=== PATIENT | male | born 1955 | race Caucasian/White ===

== ENCOUNTER 2021-12-19 09:14 | Outpatient (CLI) | payer OTHER, SELFPAY ==
--- NOTE | 2021-12-19 09:29 | EST_ITS ---
Patient Info Name: Osmar Delgado Age: 66 years : 1955 Gender: Male Ht: 72 in Wt: 230 lbs BSA: 2.33 m2 Exam Date: 12/19/2021 9:56 AM Exam Location: [facility] Stress Patient Status: Outpatient Admit Date: 12/19/2021 Staff Ordering Physician: Jeniffer Hooks Attending Provider: Jeniffer Hooks Exercise Technologist: Isadora Dumont RDCS Exercise Physician: Torres Meyer DO Exam Type: CA stress test treadmill Study Info Indications R07.9 - Chest pain, unspecified An exercise stress test was performed. Summary 1. 1. Negative Victor Manuel exercise stress test for ischemic ST changes by ECG criteria. 2. 2. Reduced functional capacity, achieving 7 METs of workload. 3. 3. Appropriate HR response to exercise. 4. 4. Appropriate HR recovery at 1 minute post exercise. 5. 5. No imaging with stress testing. 6. 6. Patient informed of the above results. Protocol: Victor Manuel Stress ECG Details Stage: REST Duration (min): 3 min : 23 sec Speed (mph): 0.0 Grade (%): 0 HR (bpm): 87 SBP (mmHg): 138 DBP (mmHg): 85 METS: --- Stage: REST Duration (min): 11 min : 10 sec Speed (mph): 0.0 Grade (%): 0 HR (bpm): 93 SBP (mmHg): 138 DBP (mmHg): 85 METS: --- Stage: STAGE 1 Duration (min): 1 min : 0 sec Speed (mph): 1.7 Grade (%): 10 HR (bpm): 103 SBP (mmHg): 138 DBP (mmHg): 85 METS: --- Stage: STAGE 1 Duration (min): 2 min : 0 sec Speed (mph): 1.7 Grade (%): 10 HR (bpm): 118 SBP (mmHg): 138 DBP (mmHg): 85 METS: --- Stage: STAGE 1 Duration (min): 3 min : 0 sec Speed (mph): 1.7 Grade (%): 10 HR (bpm): 121 SBP (mmHg): 189 DBP (mmHg): 68 METS: --- Stage: STAGE 2 Duration (min): 1 min : 0 sec Speed (mph): 2.5 Grade (%): 12 HR (bpm): 132 SBP (mmHg): 189 DBP (mmHg): 68 METS: --- Stage: STAGE 2 Duration (min): 2 min : 0 sec Speed (mph): 2.5 Grade (%): 12 HR (bpm): 139 SBP (mmHg): 145 DBP (mmHg): 67 METS: --- Stage: STAGE 2 Duration (min): 3 min : 0 sec Speed (mph): 2.5 Grade (%): 12 HR (bpm): 145 SBP (mmHg): 161 DBP (mmHg): 60 METS: --- Stage: RECOVERY Duration (min): 0 min : 59 sec Speed (mph): 0.0 Grade (%): 0 HR (bpm): 128 SBP (mmHg): 183 DBP (mmHg): 58 METS: --- Stage: RECOVERY Duration (min): 1 min : 59 sec Speed (mph): 0.0 Grade (%): 0 HR (bpm): 105 SBP (mmHg): 183 DBP (mmHg): 58 METS: --- Stage: RECOVERY Duration (min): 2 min : 59 sec Speed (mph): 0.0 Grade (%): 0 HR (bpm): 98 SBP (mmHg): 192 DBP (mmHg): 70 METS: --- Stage: RECOVERY Duration (min): 3 min : 59 sec Speed (mph): 0.0 Grade (%): 0 HR (bpm): 94 SBP (mmHg): 192 DBP (mmHg): 70 METS: --- Stage: RECOVERY Duration (min): 4 min : 59 sec Speed (mph):
== END 2021-12-19 09:15 | disposition home or self-care (01) ==
LOC: ANHCARD 09:16
PROVIDERS: PCP Internal Medicine; Visit Provider Nurse Practitioner
DX: R07.89 Other chest pain (principal)
CPT/HCPCS: 93017

== ENCOUNTER 2023-08-01 01:23 | Day surgery (SDC) | payer OTHER, SELFPAY ==
[2023-07-19 14:13] VITALS: BMI 29.2
[2023-08-01 06:38] VITALS: BP 132/67; PULSE 76; RESP 16; TEMP 36.4; O2SAT 98; BMI 28.1
[2023-08-01] MEDS: LACTATED RINGERS 1,000 ML 150 ML IV CONT (06:54)
--- NOTE | 2023-08-01 07:28 | PM.HPGS ---
History of Present Illness History of Present Illness Consent: Risks, benefits, and alternatives have been discussed and questions answered. Patient agrees to proceed with procedure. Chief complaint: neoplasm screening Narrative: Osmar Delgado is a 67 year old male Presents for screening colonoscopy. Patient's current weight appetite and bowel movements are normal. Patient denies abdominal pain. He has had no bleeding. Family history noncontributory. Previous colonoscopy was unremarkable. Patient presents today for screening exam. Review of Systems Review of Systems: Review of systems noncontributory. [facility] Past Medical History Medical History COVID-19 Enlarged prostate without lower urinary tract symptoms (luts) High cholesterol Mixed hyperlipidemia Vitamin D deficiency, unspecified Surgical History Surgical History H/O arthroscopic knee surgery Family History Family History Mother Hypertension Sibling Alcohol abuse Social History Social History Smoking status: Never smoker Second hand tobacco smoke exposure: No Alcohol intake: never Alcohol use details: 2 times a week Substance use: never Substance use type: does not use Lack of Transportation: No Lack of Food: Never True Current Housing: I Have Housing Concerned About Future Housing: No Difficulty Paying Gas/Electric Bills: No Difficulty Paying for Meds: No Currently Unemployed: No Education: Decline to Answer Difficulty w/ Childcare or Family Care: No Living arrangements: with family Spiritual care concerns: No Meds Home Medications and Allergies Home Medications Medication Instructions Recorded Confirmed Type omega-3 fatty acids 1,000 mg 1,000 mg PO BID 06/22/21 07/19/23 History capsule (Fish Oil Concentrate) ergocalciferol (vitamin D2) 1,250 1,250 mcg PO WEEKLY 90 days #12 03/18/23 07/19/23 Rx mcg (50,000 unit) capsule caps atorvastatin 40 mg tablet 40 mg PO DAILY 90 days #90 tabs 03/19/23 07/19/23 Rx tamsulosin 0.4 mg capsule (Flomax) 0.4 mg PO QHS #90 caps 03/19/23 07/19/23 Rx ketoconazole 2 % topical cream 1 applic topical BID apply to 06/19/23 07/19/23 Rx scalp #60 grams finasteride 5 mg tablet (Proscar) 5 mg PO DAILY #90 tabs 06/20/23 07/19/23 Rx Allergies Allergy/AdvReac Type Severity Reaction Status Date / Time No Known Allergies Allergy Verified 07/19/23 14:12 Vital Signs Vital Signs - 24 hr 08/01/23 06:38 Temperature 97.5 F L Pulse Rate 76 Respiratory Rate 16 Blood Pressure 132/67 Pulse Oximetry 98 Oxygen Delivery Room Air Exam Narrative: Physical exam reveals patient to be alert. Vital signs stable. HEENT exam is unremarkable. Patient is anicteric. Lungs are clear to auscultation and percussion. Heart is without murmur or extra sounds. Abdomen bowel sounds are present soft nontender with no organomegaly. Digital external rectal exam is normal. Assessment and Plan Assessment and plan (1) Encounter for screening colonoscopy: Code(s): Z12.11 - Encounter for screening for malignant neoplasm of colon Status: Acute Assessment and Plan: Patient presents today for screening colonoscopy. He appears to be at average risk for colon polyps. Further recommendations may be given after endoscopy.
--- NOTE | 2023-08-01 07:53 | WPDANESEPPF ---
Anes - Initial Pre Proc Eval Procedure: Operation Date: 08/01/23 08:00 Proposed Procedures p Screening Colonoscopy - Lamont Boswell MD Date/Time: 08/01/23 07:53 Surgeon: Lamont Boswell MD Pre Op Diagnosis: neoplasm screening Patient Data Age: 67 Gender: M Height: 1.83 m Weight: 94.2 kg Last Vital Signs Temp 97.5 F L 08/01/23 06:38 Pulse 76 08/01/23 06:38 Resp 16 08/01/23 06:38 BP 132/67 08/01/23 06:38 Pulse Ox 98 08/01/23 06:38 O2 Del Method Room Air 08/01/23 06:38 Allergies Allergy/AdvReac Type Severity Reaction Status Date / Time No Known Allergies Allergy Verified 07/19/23 14:12 Home Medications Medication Instructions Recorded Confirmed Type omega-3 fatty acids 1,000 mg 1,000 mg PO BID 06/22/21 07/19/23 History capsule (Fish Oil Concentrate) ergocalciferol (vitamin D2) 1,250 1,250 mcg PO WEEKLY 90 days #12 03/18/23 07/19/23 Rx mcg (50,000 unit) capsule caps atorvastatin 40 mg tablet 40 mg PO DAILY 90 days #90 tabs 03/19/23 07/19/23 Rx tamsulosin 0.4 mg capsule (Flomax) 0.4 mg PO QHS #90 caps 03/19/23 07/19/23 Rx ketoconazole 2 % topical cream 1 applic topical BID apply to 06/19/23 07/19/23 Rx scalp #60 grams finasteride 5 mg tablet (Proscar) 5 mg PO DAILY #90 tabs 06/20/23 07/19/23 Rx Patient hx anesthesia problems: none Family hx anesthesia problems: none Results Review: All pre-operative results and documents have been reviewed as part of the pre-operative evaluation. [facility] Past Medical History Medical History COVID-19 Enlarged prostate without lower urinary tract symptoms (luts) High cholesterol Mixed hyperlipidemia Vitamin D deficiency, unspecified Surgical History Surgical History H/O arthroscopic knee surgery Family History Family History Mother Hypertension Sibling Alcohol abuse Social History Social History Smoking status: Never smoker Second hand tobacco smoke exposure: No Alcohol intake: never Alcohol use details: 2 times a week Substance use: never Substance use type: does not use Lack of Transportation: No Lack of Food: Never True Current Housing: I Have Housing Concerned About Future Housing: No Difficulty Paying Gas/Electric Bills: No Difficulty Paying for Meds: No Currently Unemployed: No Education: Decline to Answer Difficulty w/ Childcare or Family Care: No Living arrangements: with family Spiritual care concerns: No Anes - Eval Final PreProcedure Day of Procedure 08/01/23 07:53 Patient weight: normal Heart: regular rate and rhythm Lungs: clear to auscultation Airway: Mallampati scale class II Neurological: alert and oriented Last oral intake: >/= 8 hours ASA classification: II Emergent: no Anesthetic plan: proceed Anesthesia type and monitoring: general GIVS and standard monitoring Results Review: All pre-operative results and documents have been reviewed as part of the pre-operative evaluation. Informed Consent: The patient's anesthetic plan and its attendant risks and benefits were discussed with the patient/family/POA. Questions were solicited and answers provided to the satisfaction of the patient/family/POA.
[2023-08-01] MEDS: SIMETHICONE ORAL SUSPENSION 20 MG/0.3 ML 30 ML BOTTLE 0.6 ML IRRIGATION (08:12)
[2023-08-01 08:21] VITALS: BP 103/66; PULSE 83; RESP 20; O2SAT 97
[2023-08-01 08:31] VITALS: BP 112/70; PULSE 78; RESP 22; O2SAT 92
[2023-08-01 08:41] VITALS: BP 127/76; PULSE 76; RESP 19; O2SAT 100
== END 2023-08-01 08:45 | disposition home or self-care (01) ==
PROVIDERS: PCP Family Medicine; Visit Provider Internal Medicine Gastroenterology
PROC: 0DJD8ZZ Inspection of Lower Intestinal Tract, Via Natural or Artificial Opening Endoscopic (ICD-10-PCS; CPT 45378; principal; 2023-08-01 08:00)
DX: Z12.11 Encounter for screening for malignant neoplasm of colon (principal); K57.30 Diverticulosis of large intestine without perforation or abscess without bleeding; N40.0 Benign prostatic hyperplasia without lower urinary tract symptoms; E78.00 Pure hypercholesterolemia, unspecified; E55.9 Vitamin D deficiency, unspecified; Z79.899 Other long term (current) drug therapy
CPT/HCPCS: G0121; J2704; J7120

== ENCOUNTER 2025-06-03 11:40 | Outpatient (CLI) | payer OTHER, SELFPAY ==
--- NOTE | ~2025-06-03 | XR_ITS ---
EXAMINATION: XR wrist LT min 3V, 06/03/2025 11:45 CDT HISTORY: M25.539 - Pain in unspecified wrist COMPARISON: No comparisons available. Findings: No acute fracture or malalignment. Moderate degenerative changes of the first metacarpal carpal joint Soft tissues unremarkable. Impression: No acute fracture or malalignment. Reviewed, dictated and finalized at location A. Impression: No acute fracture or malalignment.
== END 2025-06-03 11:41 | disposition home or self-care (01) ==
LOC: MICIMG 11:41
PROVIDERS: PCP Family Medicine; Visit Provider Family Medicine
DX: M25.532 Pain in left wrist (principal)
CPT/HCPCS: 73110

== ENCOUNTER 2025-07-02 07:47 | Emergency (ER) | payer OTHER, SELFPAY ==
[2025-07-02] VITALS (7 sets, daily range): BP systolic 102–132; BP diastolic 66–78; PULSE 93–180; RESP 14–22; TEMP 36.4–36.6; O2SAT 99–100
--- NOTE | ~2025-07-02 | XR_ITS ---
Examination: XR chest 1V portable Clinical History: tachycardia Comparison: None Technique: Portable AP Findings: Heart size normal. Lungs clear. Small calcified granuloma left midlung. Right hilar calcifications. No acute bony abnormality. IMPRESSION: 1. No acute cardiopulmonary findings given portable technique. Reviewed, dictated and finalized at location R.
--- NOTE | ~2025-07-02 | CT_ITS ---
EXAMINATION: CTA chest PE protocol DATE: 07/02/2025 09:36 INDICATION: Tachycardia. Elevated d-dimer. TECHNIQUE: Computed tomography angiography (CTA) of the chest was performed with 100 mL Omnipaque-350 intravenous contrast timed to evaluate the pulmonary arteries. Coronal maximum intensity projection 3D-reconstructions were created by the technologist. Automated exposure control and iterative reconstruction technique were employed. The dose-length product was 840.36 mGy-cm. COMPARISON: None. FINDINGS: There is mild atelectasis bilaterally. Calcified right lung nodules and calcified right hilar lymph nodes are consistent with old granulomatous disease. No pleural effusion. The heart size is normal. There are coronary artery calcifications. No pericardial effusion. There is no pulmonary embolus. Calcifications in the spleen are consistent with old granulomatous disease. There is mild thoracic spondylosis. IMPRESSION: 1. No pulmonary embolus. Reviewed, dictated and finalized at location E. IMPRESSION: 1. No pulmonary embolus.
[2025-07-02] MEDS: METOPROLOL TARTRATE INJ 5 MG/5 ML VIAL IV PUSH (08:14)
--- NOTE | 2025-07-02 08:15 | ED_ITS ---
HPI - General Adult General Chief complaint: Dizziness Stated complaint: dizziness, b/l hand numbness, neck soreness Time Seen by Provider: 07/02/25 07:58 History of Present Illness HPI narrative: 69-year-old male presents to the emergency department for evaluation for onset of dizziness this morning. Patient does have vertigo but states this is not vertiginous. Patient states he woke up this morning tract was neck and the falling back into the bed twice. Patient denies any pain or injury. Patient also does report tingling in his hands bilaterally and worsened chronic neck pain. Upon arrival emergency department patient was found to be and suspected SVT with heart rate to the 180s. Her some Valsalva was prior to evaluation patient did convert back to sinus tachycardia. Related Data Home Medications ?Medication ?Instructions ?Recorded ?Confirmed ?Last Taken ?Type omega-3 fatty acids 1,000 mg 1,000 mg PO BID 06/22/21 12/08/24 Unknown History capsule (Fish Oil Concentrate) Allergies Allergy/AdvReac Type Severity Reaction Status Date / Time No Known Allergies Allergy Verified 07/02/25 08:10 Review of Systems 2 Review of Systems: All systems reviewed & are unremarkable except as noted in HPI and below PMFSH Past Medical History Medical History COVID-19 High cholesterol Enlarged prostate without lower urinary tract symptoms (luts) Mixed hyperlipidemia Vitamin D deficiency, unspecified Surgical History Surgical History H/O arthroscopic knee surgery Family History Family History Mother Hypertension Sibling Alcohol abuse Social History Social History Smoking status: Never smoker Second hand tobacco smoke exposure: No Alcohol intake: never Alcohol use details: 2 times a week Substance use: never Substance use type: does not use Lack of Transportation: No Lack of Food: Never True Current Housing: I Have Housing Concerned About Future Housing: No Difficulty Paying Gas/Electric Bills: No Difficulty Paying for Meds: No Currently Unemployed: No Education: Decline to Answer Difficulty w/ Childcare or Family Care: No Living arrangements: with family Spiritual care concerns: No Exam 2 Narrative: APPEARANCE: Well appearing, no pain, no distress, well-nourished. HEAD: normocephalic, atraumatic. EYES: PERRLA/EOMI, conjunctivae clear. NOSE: Normal no drainage EARS:TMS clear with good light reflex. THROAT: Pharynx clear, no exudate. NECK: Supple. No adenopathy, no masses. RESPIRATORY: Airway patent, respirations nonlabored. Clear to auscultation bilaterally, no rales, rhonchi, wheezing. CARDIOVASCULAR: Regular rate and rhythm without murmurs rubs or gallops. ABDOMINAL: Soft, nontender, nondistended, normal bowel sounds MUSCULOSKELETAL: Moves all extremities. Strength/ROM intact, No edema, No calf tenderness. NEURO: Alert. Cranial nerves II through XII intact. Grossly intact SKIN: Warm, dry. Normal Color Course Vital Signs Vital signs: Vital Signs Temperature 97.8 F 07/02/25 08:02 Pulse Rate 180 H 07/02/25 08:02 Respiratory Rate 22 H 07/02/25 08:02 Pulse Oximetry 100 07/02/25 08:02 Temperature 97.5 F L 07/02/25 11:11 Pulse Rate 93 07/02/25 11:11 Respiratory Rate 17 07/02/25 11:11 Blood Pressure 132/78 07/02/25 11:11 Pulse Oximetry 99 07/02/25 11:11 Medical Decision Making [facility] Narrative Medical decision making narrative: 69-year-old male presents emergency department for evaluation for dizziness. Patient was an SVT upon arrival but did convert back to sinus tachycardia heart rate of the 140s. Patient was treated with a single dose of Lopressor and a L of lactated Ringer's and patient's heart rate became normal sinus rhythm. Patient was able to ambulate at his baseline with no complaint of dizziness. Patient denied having any associated chest pain during any of this episode. Patient is afebrile but does have a leukocytosis of 10.4 hemoglobin of 14.0. INR 1.0. Patient did an elevated D-dimer of 1.10, patient did have a CTA that was ordered and showed no evidence of pulmonary embolism. Thyroid is the normal limits and patient was negative for influenza RSV and for COVID. Holter monitor was ordered and placed prior to discharge emergency department. Patient was encouraged close follow-up with primary care physician. All questions were addressed patient was well-appearing at time of discharge. Differential Diagnosis Differential Diagnosis: COVID, RSV, influenza, atrial fibrillation, SVT, sinus tachycardia, dehydration having UTI Vital Signs Vital Signs: Vital Signs Temperature 97.8 F 07/02/25 08:02 Pulse Rate 180 H 07/02/25 08:02 Respiratory Rate 22 H 07/02/25 08:02 Pulse Oximetry 100 07/02/25 08:02 Temperature 97.5 F L 07/02/25 11:11 Pulse Rate 93 07/02/25 11:11 Respiratory Rate 17 07/02/25 11:11 Blood Pressure 132/78 07/02/25 11:11 Pulse Oximetry 99 07/02/25 11:11 Lab Data Lab results reviewed: Yes I reviewed the patient's lab results. 07/02/25 08:16 07/02/25 08:16 Labs: Lab Results 07/02/25 Range/Units 08:16 WBC 10.4 H (4.5-10.0) K/mm3 RBC 4.71 (4.6-6.20) M/mm3 Hgb 14.0 (14.0-18.0) g/dL Hct 41.4 L (42.0-52.0) % MCV 87.9 (80-100) fl MCH 29.7 (26-34) pg MCHC 33.8 (32-36) g/dl RDW 13.4 (11.5-14.5) % Plt Count 339 (150-375) k/mm3 MPV 10.0 (7.4-10.4) fl Immature Gran % (Auto) 0.3 (0-0.5) % Neut % (Auto) 76.8 H (45.5-73.1) % Lymph % (Auto) 15.3 L (18.3-44.2) % Titus % (Auto) 6.3 (2.6-8.5) % Eos % (Auto) 0.9 (0-4.4) % Baso % (Auto) 0.4 (0.2-1.2) % Lymph # (Auto) 1.59 (0.9-3.2) K/mm3 Titus # (Auto) 0.7 H (0.1-0.6) K/mm3 Eos # (Auto) 0.1 (0-0.3) K/mm3 Baso # (Auto) 0.0 (0.0-0.1) K/mm3 Abs Immat Gran (auto) 0.03 (0.00-0.031) K/mm3 Absolute Neuts (auto) 8.0 H (1.3-6.7) K/mm3 Absolute Nucleated RBC 0.000 (0.0-0.012) K/mm3 Nucleated RBC % 0.0 (0.0-0.2) % PT 13.4 (11.1-14.7) Seconds INR 1.0 APTT 27.5 (22.3-36.8) Seconds D-Dimer 1.10 H (<0.48) ug/mL Sodium 134 L (137-145) mmol/L Potassium 3.9 (3.4-5.0) mmol/L Chloride 103 (98-107) mmol/L Carbon Dioxide 23 (22-30) mmol/L Anion Gap 8 (4-12) mmol/L BUN 17 (9-20) mg/dL Creatinine 1.15 (0.7-1.3) mg/dL Estim Creat Clear Calc 58 ml/min Estimated GFR > 60 (59 - ) Glucose 139 H (65-110) mg/dL Calcium 8.9 (8.4-10.2) mg/dL Magnesium 2.0 (1.6-2.3) mg/dL Total Bilirubin 2.3 H (0.2-1.3) mg/dL AST 33 (17-59) U/L ALT 26 (6-50) U/L Alkaline Phosphatase 114 (38-126) U/L Total Protein 7.8 (6.3-8.2) g/dL Albumin 4.1 (3.5-5.1) g/dL TSH (Reflex) 2.870 (0.465-4.68) uIU/mL Influenza A (RT-PCR) Negative (Negative) Influenza B (RT-PCR) Negative (Negative) RSV (RT-PCR) Negative (Negative) SARS-CoV-2 RNA (RT-PCR) Negative (Negative) Imaging Data Radiologist's impression: Impressions Chest X-Ray 07/02/25 08:47 IMPRESSION: 1. No acute cardiopulmonary findings given portable technique. Chest CTA 07/02/25 09:42 IMPRESSION: 1. No pulmonary embolus. ECG Data EKG #1: EKG Interpretation: tachycardia, sinus rhythm, no ectopy, non-specific ST changes, normal QRS, normal QT and NL axis Discharge Plan Discharge Clinical Impression: Tachycardia Patient Disposition: Home Condition: Stable Instructions: Antibiotic Form, Supraventricular Tachycardia (ED), Tachycardia (ED) Additional Instructions: Drink plenty of fluids. Have close follow-up with your primary care physician. Holter monitor as directed. If you have any worsening symptoms then please call or return to the emergency department. Patient Language: Kyrgyz Prescriptions: No Action omega-3 fatty acids [Fish Oil Concentrate] 1,000 mg capsule 1,000 mg PO BID azithromycin [Zithromax] 250 mg tablet See Rx Instructions PO .COMPLEX Qty: 6 0RF Rx Instructions: For 250 mg dose pack: take 500 mg today (day 1), then 250 mg for 4 days (days 2-5) PO ketoconazole-hydrocortisone 2-2.5 % cream 1 applic topical DAILY Qty: 30 0RF prednisone 20 mg tablet 20 mg PO DAILY Qty: 7 0RF hydrocortisone 2.5 % cream 1 applic topical BID PRN (Reason: rash) Qty: 60 1RF ketoconazole 2 % cream 1 applic topical DAILY Qty: 60 1RF tamsulosin [Flomax] 0.4 mg capsule 0.8 mg PO QHS Qty: 180 1RF atorvastatin 40 mg tablet See Rx Instructions .ROUTE .COMPLEX Qty: 90 1RF Dose Instruction: TAKE 1 TABLET BY MOUTH EVERY DAY Rx Instructions: TAKE 1 TABLET BY MOUTH EVERY DAY cyclobenzaprine 10 mg tablet 10 mg PO TID PRN (Reason: muscle spasm) Qty: 60 0RF finasteride 5 mg tablet See Rx Instructions .ROUTE .COMPLEX Qty: 90 1RF Dose Instruction: TAKE 1 TABLET BY MOUTH EVERY DAY Rx Instructions: TAKE 1 TABLET BY MOUTH EVERY DAY ergocalciferol (vitamin D2) 1,250 mcg (50,000 unit) capsule 1,250 mcg PO WEEKLY 90 Days Qty: 12 1RF Follow-up/Referrals: Tha Mohan MD [Primary Care Provider, Family Practice]
[2025-07-02] MEDS: LACTATED RINGERS 1,000 ML 999 ML IV CONT (08:17)
--- NOTE | 2025-07-02 08:18 | ECG_ITS ---
Test Date: 2025-07-02 08:22:36 Measurements Intervals [place] Rate: 100 P: 16 [place]: 170 QRS: -34 QRSD: 120 T: 18 QT: 356 QTc: 461 Interpretive Statements SINUS TACHYCARDIA LEFT AXIS DEVIATION [QRS AXIS < -30] RIGHT BUNDLE BRANCH BLOCK [120+ ms QRS DURATION, UPRIGHT V1, 40+ ms S IN I/aVL/V4/V5/V6] Electronically Signed On 07-02-2025 20:09:47 CDT by Papo Aguilar M.D.
[2025-07-02 08:27] LABS: Hematocrit 41.4 % (42.0-52.0); Hemoglobin 14.0 g/dL (14.0-18.0); Immature Granulocyte Percent A 0.3 % (0-0.5); Lymphocytes Absolute Auto 1.59 K/mm3 (0.9-3.2); Mean Corpuscular HGB Conc 33.8 g/dl (32-36); Mean Corpuscular Hemoglobin 29.7 pg (26-34); Mean Corpuscular Volume 87.9 fl (80-100); Nucleated Red Blood Cells Absolute Auto 0.000 K/mm3 (0.0-0.012); Nucleated Red Blood Cells Perc 0.0 % (0.0-0.2); Platelet Count Result 339 k/mm3 (150-375); Red Blood Count 4.71 M/mm3 (4.6-6.20); White Blood Count 10.4 K/mm3 (4.5-10.0)
[2025-07-02 08:41] LABS: INR 1.0; Prothrombin Time 13.4 Seconds (11.1-14.7)
[2025-07-02 08:42] LABS: Partial Thromboplastin Time 27.5 Seconds (22.3-36.8)
[2025-07-02 08:49] LABS: Alanine Aminotransferase 26 U/L (6-50); Albumin Level 4.1 g/dL (3.5-5.1); Alkaline Phosphatase 114 U/L (38-126); Anion Gap 8 mmol/L (4-12); Aspartate Amino Transferase 33 U/L (17-59); Bilirubin,Total 2.3 mg/dL (0.2-1.3); Blood Urea Nitrogen 17 mg/dL (9-20); Calcium 8.9 mg/dL (8.4-10.2); Carbon Dioxide 23 mmol/L (22-30); Chloride 103 mmol/L (98-107); Estimated CRCL calculation 58 ml/min; Estimated Glomerular Filt Rate > 60; Glucose 139 mg/dL (65-110); Magnesium 2.0 mg/dL (1.6-2.3); Potassium 3.9 mmol/L (3.4-5.0); Sodium 134 mmol/L (137-145); Total Protein 7.8 g/dL (6.3-8.2)
[2025-07-02 09:11] LABS: Influenza A QL RT-PCR Negative (Negative); Influenza B QL RT-PCR Negative (Negative); RSV RNA, RT-PCR Negative (Negative); SARS-CoV-2 RNA PCR Negative (Negative)
[2025-07-02 09:21] LABS: Thyroid Stimulating Hormone Reflex 2.870 uIU/mL (0.465-4.68)
--- NOTE | 2025-07-12 15:40 | WPDHOLTEREM ---
Holter/Event Monitor Holter/Event Monitor Date of procedure: 07/02/25 Holter/Event Procedure: 3-7 Day Holter Monitor Indications: Tachycardia Conclusion: 1. 6 days holter monitor on 07/02/25. 2. Predominant rhythm is sinus rhythm. HR range 72-197 bpm; average HR 96 bpm. 3. There are rare premature supraventricular complexes, rare supraventricular couplets, and rare supraventricular triplets. There are 11 episodes of supraventricular tachycardia with fastest at 146 bpm and longest lasting 19 seconds. 4. There are occasional premature ventricular complexes, rare ventricular couplets, and rare ventricular triplets. There are 4 episodes of ventricular tachycardia with fastest at 197 bpm and longest lasting 7 beats. 5. No significant pauses greater than 3 seconds. 6. Patient reprots 8 episodes of symptoms of lightheadedness, fluttering which demonstrate sinus rhythm, HR range 97-136 bpm with 3 episodes with PVC's.
== END 2025-07-02 11:11 | disposition home or self-care (01) ==
PROVIDERS: Emergency Provider Emergency Medicine; PCP Family Medicine
DX: R00.0 Tachycardia, unspecified (principal); E78.2 Mixed hyperlipidemia; E55.9 Vitamin D deficiency, unspecified; Z86.16 Personal history of COVID-19; I45.10 Unspecified right bundle-branch block
CPT/HCPCS: 36415; 71045; 71275; 80053; 83735; 84443; 85025; 85380; 85610; 85730; 87637; 93005; 93242; 96361; 96374; 99284; J0616; J7120; Q9967

== ENCOUNTER 2025-07-13 13:28 | Outpatient (CLI) | payer OTHER, SELFPAY ==
--- NOTE | ~2025-07-13 | XR_ITS ---
[id number] Indication: M54.2 - Cervicalgia Comparison: None Findings: The vertebral heights are intact. No fracture or subluxation. Moderate loss of disc height throughout Soft tissues unremarkable Impression: No acute abnormality. Reviewed, dictated and finalized at location P. Impression: No acute abnormality.
== END 2025-07-13 13:29 | disposition home or self-care (01) ==
LOC: MICIMG 13:29
PROVIDERS: PCP Family Medicine; Visit Provider Nurse Practitioner Family
DX: M54.2 Cervicalgia (principal); G56.90 Unspecified mononeuropathy of unspecified upper limb
CPT/HCPCS: 72040

== ENCOUNTER 2025-08-12 09:33 | Outpatient (CLI) | payer OTHER, SELFPAY ==
--- NOTE | 2025-08-12 10:00 | ECHO_ITS ---
Patient Info Name: Osmar Delgado Age: 69 years : 1955 Gender: Male Ht: 71 in Wt: 200 lbs BSA: 2.15 m2 HR: 86 bpm BP: 155 / 94 mmHg Technical Quality: Good Exam Date: 08/12/2025 10:43 AM Patient Status: O Admit Date: 08/12/2025 Exam Type: CA echo doppler color flow Complete two-dimensional, color flow and Doppler transthoracic echocardiogram is performed. Freezer Operator: Blessing Huff Attending Provider: Torres Meyer DO Summary 1. Complete two-dimensional, color flow and Doppler transthoracic echocardiogram is performed. 2. Left ventricular chamber dimension is mildly enlarged. 3. Left ventricular systolic function is mildly reduced, estimated at 45-50. 4. The left ventricular diastolic function is abnormal. 5. E/e' 13 is mildly elevated. 6. Left atrial chamber dimension is moderately enlarged. 7. There is mild aortic valve sclerosis. 8. There is mild mitral valve regurgitation. 9. There is mild tricuspid valve regurgitation. 10. No pulmonary hypertension, estimated pulmonary arterial systolic pressure is 23 mmHg. 11. There is mild pulmonic regurgitation. Left Ventricle E/e' 13 is mildly elevated. Left ventricular chamber dimension is mildly enlarged. Left ventricular systolic function is mildly reduced, estimated at 45-50. The left ventricular diastolic function is abnormal. Right Ventricle Right ventricular chamber dimension is normal. Right ventricular systolic function is normal and with normal TAPSE 1.8 cm. Left Atria Left atrial chamber dimension is moderately enlarged. Right Atria Right atrial chamber dimension is normal. Aortic Valve The aortic valve is trileaflet. There is mild aortic valve sclerosis. There is no aortic valve stenosis. There is no aortic valve regurgitation. Pulmonic Valve There is mild pulmonic regurgitation. Mitral Valve There is no mitral valve stenosis. There is mild mitral valve regurgitation. Tricuspid Valve There is mild tricuspid valve regurgitation. No pulmonary hypertension, estimated pulmonary arterial systolic pressure is 23 mmHg. Pericardium/Pleural There is no pericardial effusion. Inferior Vena Cava Normal inferior vena cava with >50% collapse upon inspiration consistent with normal right atrial pressure, 5 mmHg. Aorta The aortic root size at the sinus of Valsalva is normal. Left Ventricular Outflow Tract Name Value Normal LVOT 2D LVOT Diameter 2.3 cm LVOT Doppler LVOT Peak Velocity 80 cm/s LVOT Peak Gradient 3 mmHg LVOT Mean Gradient 2 mmHg LVOT VTI 20 cm LVOT Stroke Volume 87 ml LVOT CO 7.0 l/min LVOT CI 3.3 l/min/m2 Pulmonic Valve Name Value Normal RVOT Doppler RVOT Peak Velocity 77 cm/s RVOT Peak Gradient 2 mmHg PV Doppler PV Peak Velocity 127 cm/s PV Peak Gradient 6 mmHg Mitral Valve Name Value Normal MV Diastolic Function MV E Peak Velocity 107 cm/s MV A Peak Velocity 93 cm/s MV E/A 1.1 MV Decel Time (PW) 235 ms MV Annular TDI MV E/e' (Septal) 14.5 MV E/e' (Lateral) 12.5 MV E/e' (Average) 13.5 Tricuspid Valve Name Value Normal TV Regurgitation Doppler TR Peak Velocity 212 cm/s TR Peak Gradient 18 mmHg Estimated PAP/RSVP RA Pressure 5 mmHg <=5 PA Systolic Pressure 23 mmHg <36 RV Systolic Pressure 23 mmHg <36 Aortic Valve Name Value Normal AV Doppler AV Peak Velocity 190 cm/s AV Peak Gradient 15 mmHg AV Area (Cont Eq Colin) 1.8 cm2 AV DI (Colin) 0.42 AV Regurgitation 2D LVOT Area 4.3 cm2 Ventricles Name Value Normal LV Dimensions 2D/MM IVS Diastolic Thickness (2D) 1.1 cm 0.6-1.0 LVID Diastole (2D) 5.3 cm 4.2-5.8 LVIW Diastolic Thickness (2D) 1.2 cm 0.6-1.0 LVID Systole (2D) 4.0 cm 2.5-4.0 LVOT Diameter 2.3 cm LV Mass (2D Cubed) 241.77 g 88.00-224.00 LV Mass Index (2D Cubed) 113 g/m2 49-115 Relative Wall Thickness (2D) 0.45 <=0.42 LV Fractional Shortening/Ejection Fraction 2D/MM LV Fractional Shortening (2D) 24 % 25-43 LV EF (2D Teichholz) 48 % LV Diastolic Volume (4C MOD) 134 ml LV EF (4C MOD) 54 % LV Diastolic Volume (2C MOD) 151 ml LV EF (2C MOD) 56 % LV Diastolic Volume (BP MOD) 146 ml 62-150 LV Diastolic Volume Index (BP MOD) 68 ml/m2 34-74 LV Systolic Volume (BP MOD) 66 ml 21-61 LV Systolic Volume Index (BP MOD) 31 ml/m2 11-31 LV EF (BP MOD) 55 % 52-72 LV Diastolic Length (4C) 9.2 cm LV Systolic Length (4C) 7.9 cm LV Stroke Volume (4C MOD) 73 ml Atria Name Value Normal LA Dimensions LA Volume (4C A-L) 56 ml LA Volume (BP A-L) 63 ml RA Dimensions RA Systolic Major Hinkley Length (4C) 5.1 cm 2.1-2.7 RA Area (4C) 13.9 cm2 <=18.0 Report Signatures
--- OUTSIDE RECORDS SUMMARY | 2025-08-12 18:05 | XMS_ITS | Clinical Summary ---
Author Organization [facility] Address [address] [place] [address] Care Team Providers Care Lean Coach Name Role Phone Unavailable Primary Care Provider Unavailabl e Social History Tobacco Use Types Packs/Day Years Used Date Smoking Tobacco: Never Assessed Sex and Gender Information Value Date Recorded Sex Assigned at Not on file Legal Sex Male 6:14 PM CDT Gender Identity Not on file Sexual Orientation Not on file Plan of Treatment Health Maintenance Due Date Last Done Comments Colorectal Cancer Screening Colonoscopy (10 Years) 1955 Hepatitis C 1971 DTaP, Tdap and Td Vaccines ( 1 - Tdap) 1972 Pneumococcal Vaccine: 50+ Ye ars (1 of 1 - PCV) 2003 Zoster Vaccines (1 of 2) 2003 COVID-19 Vaccine ( - 2024-2 6 season) 2025 Influenza Adult (#1) 2025 RSV Immunization or 60+ Years (1 - 1-dose 75+ series) 2028 Hepatitis A Vaccines Aged Out No long er eligible based on patient's age to complete this topic Meningococcal B Vaccine Aged Out No l onger eligible based on patient's age to complete this topic Meningococcal Vaccine Aged Out No yary dallas eligible based on patient's age to complete this topic RSV Immunizations Under 20 Months Aged Out No longer eligible based on patient's age to complete this topic
== END 2025-08-12 09:34 | disposition home or self-care (01) ==
PROVIDERS: PCP Family Medicine; Visit Provider Internal Medicine Cardiovascular Disease
DX: I47.20 Ventricular tachycardia, unspecified (principal); I51.89 Other ill-defined heart diseases; I35.8 Other nonrheumatic aortic valve disorders; I08.1 Rheumatic disorders of both mitral and tricuspid valves; I37.1 Nonrheumatic pulmonary valve insufficiency
CPT/HCPCS: 93306

== ENCOUNTER 2025-08-30 15:55 | Emergency (ER) | payer OTHER, SELFPAY ==
--- NOTE | ~2025-08-30 | XR_ITS ---
EXAMINATION: XR chest 2V DATE: 08/30/2025 16:21 INDICATION: Chest pain. Back pain. TECHNIQUE: Frontal and lateral views of the chest were obtained. COMPARISON: Chest x-ray dated 07/02/2025 FINDINGS: Heart size is normal. Atherosclerotic aorta. Lungs are free of acute processes. Benign granulomatous lesions of right lung and right hilum. Severe degenerative changes of both shoulders IMPRESSION: 1. No acute findings. Granulomatous lesions of right lung. Atherosclerotic aorta. 2. Severe degenerative changes of both shoulders. Reviewed, dictated and finalized at location [facility] IMPRESSION: 1. No acute findings. Granulomatous lesions of right lung. Atherosclerotic aort a. 2. Severe degenerative changes of both shoulders.
--- NOTE | 2025-08-30 15:56 | ECG_ITS ---
Test Date: 2025-08-30 16:00:27 Measurements Intervals [place] Rate: 94 P: 7 HI: 152 QRS: -29 QRSD: 100 T: 16 QT: 368 QTc: 460 Interpretive Statements SINUS RHYTHM Electronically Signed On 08-31-2025 05:50:49 PARK WORKER SUPERVISOR by Ayan Prasad D.O
[2025-08-30 15:58] VITALS: BP 154/79; PULSE 97; RESP 17; TEMP 36.4; O2SAT 98
--- NOTE | 2025-08-30 16:01 | ED_ITS ---
HPI - Chest Pain General Chief Complaint: Chest Pain <Ludivina Patricio PA-C - Last Filed: 08/31/25 09:19> Stated Complaint: Chest pain <Ludivina Patricio PA-C - Last Filed: 08/31/25 09:19> Time Seen by Provider: 08/30/25 16:01 <Ludivina Patricio PA-C - Last Filed: 08/31/25 09:19> Focused HPI: This is a 69 year old male that presents to the ER for chest pain. Ongoing since this morning. Reports he hasn't felt well for the last couple of days. Recently seen for SVT. Was started on Metoprolol. Reports he is scheduled for a stress test in a couple of weeks. GENERAL: Well-appearing, well-nourished, and in no acute distress. HEAD: Normocephalic, atraumatic. CHEST: Clear to auscultation. ?No respiratory distress. HEART: Regular rate and rhythm.? NEURO: ?Alert and oriented x3. Patient screened in triage and initial orders placed.? ?Additional care and disposition to be based upon?diagnostic testing and treatment. <Ludivina Patricio PA-C - Last Filed: 08/31/25 09:19> Focused HPI: This is a 69 year old male that presents to the ER for chest pain. intermittent described as a pressure since this morning, now resolved. Reports he hasn't felt well for the last couple of days. Recently seen for SVT. Was started on Metoprolol. Reports he is scheduled for a stress test in a couple of weeks. GENERAL: Well-appearing, well-nourished, and in no acute distress. HEAD: Normocephalic, atraumatic. CHEST: Clear to auscultation. ?No respiratory distress. HEART: Regular rate and rhythm.? NEURO: ?Alert and oriented x3. Patient screened in triage and initial orders placed.? ?Additional care and disposition to be based upon?diagnostic testing and treatment. <Minh Pelletier MD - Last Filed: 08/31/25 01:09> History of Present Illness HPI narrative: agree with the HPI above <Minh Pelletier MD - Last Filed: 08/31/25 01:09> Related Data Home Medications: Home Medications ?Medication ?Instructions ?Recorded ?Confirmed ?Last Taken ?Type omega-3 fatty acids 1,000 mg 1,000 mg PO BID 06/22/21 07/26/25 Unknown History capsule (Fish Oil Concentrate) metoprolol succinate 25 mg 12.5 mg PO DAILY 07/26/25 1 Unknown History tablet,extended release 24 hr <Ludivina Patricio PA-C - Last Filed: 08/31/25 09:19> Allergies/Adverse Reactions: Allergies Allergy/AdvReac Type Severity Reaction Status Date / Time No Known Allergies Allergy Verified 07/13/25 12:33 <Ludivina Patricio PA-C - Last Filed: 08/31/25 09:19> Review of Systems 2 Review of Systems: as reviewed above in HPI <Minh Pelletier MD - Last Filed: 08/31/25 01:09> All systems reviewed & are unremarkable except as noted in HPI and below < Minh Pelletier MD - Last Filed: 08/31/25 01:09> [facility] Past Medical History Medical History: Medical History Paroxysmal SVT (supraventricular tachycardia) COVID-19 High cholesterol Enlarged prostate without lower urinary tract symptoms (luts) Mixed hyperlipidemia Vitamin D deficiency, unspecified <Ludivina Patricio PA-C - Last Filed: 08/31/25 09:19> Surgical History Surgical History: Surgical History H/O arthroscopic knee surgery <Ludivina Patricio PA-C - Last Filed: 08/31/25 09:19> Family History Family History: Family History Mother Hypertension Sibling Alcohol abuse <Ludivina Patricio PA-C - Last Filed: 08/31/25 09:19> Social History Social History: Social History Smoking status: Never smoker Second hand tobacco smoke exposure: No Alcohol intake: never Alcohol use details: 2 times a week Substance use: never Substance use type: does not use Lack of Transportation: No Lack of Food: Never True Current Housing: I Have Housing Concerned About Future Housing: No Difficulty Paying Gas/Electric Bills: No Difficulty Paying for Meds: No Currently Unemployed: No Education: Decline to Answer Difficulty w/ Childcare or Family Care: No Living arrangements: with family Spiritual care concerns: No <Ludivina Patricio PA-C - Last Filed: 08/31/25 09:19> Exam 2 Narrative: GENERAL: [Well-appearing, well-nourished, and in no acute distress.] HEAD: [Normocephalic, atraumatic.] EYES: [PERRLA and EOMI.] ENT: Nares clear, no rhinorrhea or epistaxis. Mucous membranes moist. NECK: Supple. CHEST: [Clear to auscultation. No respiratory distress.] HEART: [Regular rate and rhythm]. No murmur heard. [Normal peripheral pulses.] ABDOMEN: [Soft, nondistended], [nontender], [No rigidity or guarding] EXTREMITIES: Normal range of motion. [No edema.] SKIN: Warm, dry, no rash. NEURO: [No focal deficits]. Alert and oriented [x3.] PSYCH: [Normal mood and affect.] <Mihn Pelletier MD - Last Filed: 08/31/25 01:09> Course Vital Signs Vital signs: Vital Signs Temperature 97.6 F 08/30/25 15:58 Pulse Rate 97 08/30/25 15:58 Respiratory Rate 17 08/30/25 15:58 Blood Pressure 154/79 H 08/30/25 15:58 Pulse Oximetry 98 08/30/25 15:58 Oxygen Delivery Room Air 08/30/25 15:58 Temperature 97.6 F 08/30/25 15:58 Pulse Rate 78 08/30/25 20:06 Respiratory Rate 16 08/30/25 20:06 Blood Pressure 139/74 08/30/25 20:06 Pulse Oximetry 98 08/30/25 20:06 Oxygen Delivery Room Air 08/30/25 18:34 <Ludivina Patricio PA-C - Last Filed: 08/31/25 09:19> Vital Signs Temperature 97.6 F 08/30/25 15:58 Pulse Rate 97 08/30/25 15:58 Respiratory Rate 17 08/30/25 15:58 Blood Pressure 154/79 H 08/30/25 15:58 Pulse Oximetry 98 08/30/25 15:58 Oxygen Delivery Room Air 08/30/25 15:58 Temperature 97.6 F 08/30/25 15:58 Pulse Rate 78 08/30/25 20:06 Respiratory Rate 16 08/30/25 20:06 Blood Pressure 139/74 08/30/25 20:06 Pulse Oximetry 98 08/30/25 20:06 Oxygen Delivery Room Air 08/30/25 18:34 <Minh Pelletier MD - Last Filed: 08/31/25 01:09> MDM - Chest Pain MDM Narrative Medical decision making narrative: 69 year old male that presents to the ER for chest pain. intermittent described as a pressure since this morning, now resolved. Reports he hasn't felt well for the last couple of days. Recently seen for SVT. Was started on Metoprolol. Reports he is scheduled for a stress test in a couple of weeks. patient is overall very well-appearing not any acute distress. Has strong symmetric pulses, clear breath sounds, no murmurs. No signs of fluid overload. No distress dyspnea or diaphoresis. He is having no symptoms of any chest pain or chest pressure at this time. States that they have been intermittent. Can flying with his metoprolol and has a cardiology appointment scheduled for follow-up with a stress test to further evaluate his symptoms with this scheduled for September 10. Given his lack of symptoms which is reassuring he can most likely go home with he has an unremarkable workup. Serial troponins serial EKGs x-ray and laboratory studies were obtained and unremarkable. Troponin negative x2. EKG without any ischemic evidence or ectopy. Remains hemodynamically stable on re-evaluation. Chest x-ray shows no acute findings and chronic granulomatous disease from previous imaging. Safe for discharge after discussing with him close outpatient follow-up with his psychological operations specialist and to make sure he calls him tomorrow for repeat ER follow-up appointment and to make sure he goes to his stress test scheduled for the . Patient is safe for discharge with further risk stratification on outpatient basis with strict return precautions. <Minh Pelletier MD - Last Filed: 08/31/25 01:09> Medical Records Data Attestation: I reviewed the patient's medical records. <Minh Pelletier MD - Last Filed: 08/31/25 01:09> Lab Data Attestation: I reviewed the patient's lab results. <Minh Pelletier MD - Last Filed: 08/31/25 01:09> Result diagrams: 08/30/25 16:08 08/30/25 16:08 <Ludivina Patricio PA-C - Last Filed: 08/31/25 09:19> Labs: Lab Results 08/30/25 08/30/25 Range/Units 16:08 18:43 WBC 7.2 (4.5-10.0) K/mm3 RBC 4.47 L (4.6-6.20) M/mm3 Hgb 13.6 L (14.0-18.0) g/dL Hct 39.7 L (42.0-52.0) % MCV 88.8 (80-100) fl MCH 30.4 (26-34) pg MCHC 34.3 (32-36) g/dl RDW 13.3 (11.5-14.5) % Plt Count 257 (150-375) k/mm3 MPV 10.3 (7.4-10.4) fl Immature Gran % (Auto) 0.3 (0-0.5) % Neut % (Auto) 58.1 (45.5-73.1) % Lymph % (Auto) 27.7 (18.3-44.2) % Buchanan % (Auto) 11.3 H (2.6-8.5) % Eos % (Auto) 1.9 (0-4.4) % Baso % (Auto) 0.7 (0.2-1.2) % Lymph # (Auto) 1.99 (0.9-3.2) K/mm3 Buchanan # (Auto) 0.8 H (0.1-0.6) K/mm3 Eos # (Auto) 0.1 (0-0.3) K/mm3 Baso # (Auto) 0.1 (0.0-0.1) K/mm3 Abs Immat Gran (auto) 0.02 (0.00-0.031) K/mm3 Absolute Neuts (auto) 4.2 (1.3-6.7) K/mm3 Absolute Nucleated RBC 0.000 (0.0-0.012) K/mm3 Nucleated RBC % 0.0 (0.0-0.2) % PT 13.6 (11.1-14.7) Seconds INR 1.0 APTT 25.6 (22.3-36.8) Seconds Sodium 134 L (137-145) mmol/L Potassium 4.2 (3.4-5.0) mmol/L Chloride 103 (98-107) mmol/L Carbon Dioxide 24 (22-30) mmol/L Anion Gap 7 (4-12) mmol/L BUN 19 (9-20) mg/dL Creatinine 0.93 (0.7-1.3) mg/dL Estim Creat Clear Calc 70 ml/min Estimated GFR > 60 (59 - ) Glucose 109 (65-110) mg/dL Calcium 9.1 (8.4-10.2) mg/dL Total Bilirubin 2.1 H (0.2-1.3) mg/dL AST 35 (17-59) U/L ALT 27 (6-50) U/L Alkaline Phosphatase 89 (38-126) U/L Troponin I < 0.012 < 0.012 (0.000-0.034) ng/mL Total Protein 7.9 (6.3-8.2) g/dL Albumin 4.4 (3.5-5.1) g/dL Lipase 88 (23-300) U/L <Ludivina Patricio PA-C - Last Filed: 08/31/25 09:19> Lab Results 08/30/25 08/30/25 Range/Units 16:08 18:43 WBC 7.2 (4.5-10.0) K/mm3 RBC 4.47 L (4.6-6.20) M/mm3 Hgb 13.6 L (14.0-18.0) g/dL Hct 39.7 L (42.0-52.0) % MCV 88.8 (80-100) fl MCH 30.4 (26-34) pg MCHC 34.3 (32-36) g/dl RDW 13.3 (11.5-14.5) % Plt Count 257 (150-375) k/mm3 MPV 10.3 (7.4-10.4) fl Immature Gran % (Auto) 0.3 (0-0.5) % Neut % (Auto) 58.1 (45.5-73.1) % Lymph % (Auto) 27.7 (18.3-44.2) % Buchanan % (Auto) 11.3 H (2.6-8.5) % Eos % (Auto) 1.9 (0-4.4) % Baso % (Auto) 0.7 (0.2-1.2) % Lymph # (Auto) 1.99 (0.9-3.2) K/mm3 Buchanan # (Auto) 0.8 H (0.1-0.6) K/mm3 Eos # (Auto) 0.1 (0-0.3) K/mm3 Baso # (Auto) 0.1 (0.0-0.1) K/mm3 Abs Immat Gran (auto) 0.02 (0.00-0.031) K/mm3 Absolute Neuts (auto) 4.2 (1.3-6.7) K/mm3 Absolute Nucleated RBC 0.000 (0.0-0.012) K/mm3 Nucleated RBC % 0.0 (0.0-0.2) % PT 13.6 (11.1-14.7) Seconds INR 1.0 APTT 25.6 (22.3-36.8) Seconds Sodium 134 L (137-145) mmol/L Potassium 4.2 (3.4-5.0) mmol/L Chloride 103 (98-107) mmol/L Carbon Dioxide 24 (22-30) mmol/L Anion Gap 7 (4-12) mmol/L BUN 19 (9-20) mg/dL Creatinine 0.93 (0.7-1.3) mg/dL Estim Creat Clear Calc 70 ml/min Estimated GFR > 60 (59 - ) Glucose 109 (65-110) mg/dL Calcium 9.1 (8.4-10.2) mg/dL Total Bilirubin 2.1 H (0.2-1.3) mg/dL AST 35 (17-59) U/L ALT 27 (6-50) U/L Alkaline Phosphatase 89 (38-126) U/L Troponin I < 0.012 < 0.012 (0.000-0.034) ng/mL Total Protein 7.9 (6.3-8.2) g/dL Albumin 4.4 (3.5-5.1) g/dL Lipase 88 (23-300) U/L <Minh Pelletier MD - Last Filed: 08/31/25 01:09> Imaging Data Attestation: I personally reviewed and interpreted this imaging study as follows: < Minh Pelletier MD - Last Filed: 08/31/25 01:09> My impression: Impressions Chest X-Ray 08/30/25 16:35 IMPRESSION: 1. No acute findings. Granulomatous lesions of right lung. Atherosclerotic aorta. 2. Severe degenerative changes of both shoulders. <Minh Pelletier MD - Last Filed: 08/31/25 01:09> Discharge Plan Discharge Clinical Impression: Chest pain Qualifiers: Chest pain type: unspecified Qualified Code(s): R07.9 - Chest pain, unspecified <Ludivina Patricio PA-C - Last Filed: 08/31/25 09:19> Patient Disposition: Home <Ludivina Patricio PA-C - Last Filed: 08/31/25 09:19> Condition: Stable <Ludivina Patricio PA-C - Last Filed: 08/31/25 09:19> Instructions: Antibiotic Form, Chest Pain (ED) <Ludivina Patricio PA-C - Last Filed: 08/31/25 09:19> Additional Instructions: Cardiac markers are undetectable x2, EKG is normal. No signs of any urgent or emergent concern but please call your psychological operations specialist tomorrow for close follow-up and to see if they can move your stress test up from the 10 of September. Return with any emergent concerns such as ongoing crushing chest pain, difficulty breathing, diaphoresis, nausea vomiting, loss of consciousness or any other issues. <Ludivina Patricio PA-C - Last Filed: 08/31/25 09:19> Patient Language: Lao <Ludivina Patricio PA-C - Last Filed: 08/31/25 09:19> Prescriptions: No Action omega-3 fatty acids [Fish Oil Concentrate] 1,000 mg capsule 1,000 mg PO BID metoprolol succinate 25 mg tablet extended release 24 hr 12.5 mg PO DAILY atorvastatin 40 mg tablet See Rx Instructions .ROUTE .COMPLEX Qty: 90 1RF Dose Instruction: TAKE 1 TABLET BY MOUTH EVERY DAY Rx Instructions: TAKE 1 TABLET BY MOUTH EVERY DAY cyclobenzaprine 10 mg tablet 10 mg PO TID PRN (Reason: muscle spasm) Qty: 60 0RF finasteride 5 mg tablet See Rx Instructions .ROUTE .COMPLEX Qty: 90 1RF Dose Instruction: TAKE 1 TABLET BY MOUTH EVERY DAY Rx Instructions: TAKE 1 TABLET BY MOUTH EVERY DAY ergocalciferol (vitamin D2) 1,250 mcg (50,000 unit) capsule 1,250 mcg PO WEEKLY 90 Days Qty: 12 1RF tamsulosin 0.4 mg capsule See Rx Instructions .ROUTE .COMPLEX Qty: 180 1RF Dose Instruction: TAKE 2 CAPSULES BY MOUTH EVERY DAY AT BEDTIME Rx Instructions: TAKE 2 CAPSULES BY MOUTH EVERY DAY AT BEDTIME <Ludivina Patricio PA-C - Last Filed: 08/31/25 09:19> Follow-up/Referrals: Torres Meyer DO [Physician, Cardiology] - 2 Days Referral Note: ER follow-up Tha Mohan MD [Primary Care Provider, Family Practice] <Ludivina Patricio PA-C - Last Filed: 08/31/25 09:19> Time of Disposition: 19:51 <Ludivina Patricio PA-C - Last Filed: 08/31/25 09:19> 19:51 <Minh Pelletier MD - Last Filed: 08/31/25 01:09>
[2025-08-30 16:16] LABS: Hematocrit 39.7 % (42.0-52.0); Hemoglobin 13.6 g/dL (14.0-18.0); Immature Granulocyte Percent A 0.3 % (0-0.5); Lymphocytes Absolute Auto 1.99 K/mm3 (0.9-3.2); Mean Corpuscular HGB Conc 34.3 g/dl (32-36); Mean Corpuscular Hemoglobin 30.4 pg (26-34); Mean Corpuscular Volume 88.8 fl (80-100); Nucleated Red Blood Cells Absolute Auto 0.000 K/mm3 (0.0-0.012); Nucleated Red Blood Cells Perc 0.0 % (0.0-0.2); Platelet Count Result 257 k/mm3 (150-375); Red Blood Count 4.47 M/mm3 (4.6-6.20); White Blood Count 7.2 K/mm3 (4.5-10.0)
[2025-08-30 16:27] LABS: Alanine Aminotransferase 27 U/L (6-50); Albumin Level 4.4 g/dL (3.5-5.1); Alkaline Phosphatase 89 U/L (38-126); Anion Gap 7 mmol/L (4-12); Aspartate Amino Transferase 35 U/L (17-59); Bilirubin,Total 2.1 mg/dL (0.2-1.3); Blood Urea Nitrogen 19 mg/dL (9-20); Calcium 9.1 mg/dL (8.4-10.2); Carbon Dioxide 24 mmol/L (22-30); Chloride 103 mmol/L (98-107); Estimated CRCL calculation 70 ml/min; Estimated Glomerular Filt Rate > 60; Glucose 109 mg/dL (65-110); INR 1.0; Lipase 88 U/L (23-300); Potassium 4.2 mmol/L (3.4-5.0); Prothrombin Time 13.6 Seconds (11.1-14.7); Sodium 134 mmol/L (137-145); Total Protein 7.9 g/dL (6.3-8.2)
[2025-08-30 16:28] LABS: Partial Thromboplastin Time 25.6 Seconds (22.3-36.8)
[2025-08-30 16:39] LABS: Troponin I < 0.012 ng/mL (0.000-0.034)
--- OUTSIDE RECORDS SUMMARY | 2025-08-30 18:17 | XMS_ITS | Clinical Summary ---
Author Organization [facility] Address [address] [place] [address] Care Team Providers Care Tube Sorter Name Role Phone Unavailable Primary Care Provider [...] Vaccines (1 of 2) 2003 COVID-19 Vaccine (1 - 2024-2 6 season) 2025 Influenza Adult [...]
--- NOTE | 2025-08-30 18:33 | ECG_ITS ---
Test Date: 2025-08-30 18:41:27 Measurements Intervals [place] Rate: 77 P: 8 PA: 167 QRS: -32 QRSD: 102 T: 14 QT: 396 QTc: 449 Interpretive Statements SINUS RHYTHM LEFTWARD AXIS Electronically Signed On 08-31-2025 05:51:56 PIPE WRAPPING MACHINE OPERATOR by Ayan Prasad D.O
--- NOTE | 2025-08-30 18:37 | PC.NURSE ---
per Dr. Navarro, OK for pt to eat. food given to pt at this time
[2025-08-30] MEDS: ASPIRIN 81 MG CHEWABLE TABLET 324 MG PO (18:59)
--- NOTE | 2025-08-30 19:10 | PC.NURSE ---
d-dimer added on at this time. hematology called
[2025-08-30 19:13] LABS: Troponin I < 0.012 ng/mL (0.000-0.034)
[2025-08-30 20:06] VITALS: BP 139/74; PULSE 78; RESP 16; O2SAT 98
== END 2025-08-30 20:08 | disposition home or self-care (01) ==
LOC: ANHED 19:52
PROVIDERS: Emergency Medicine; Emergency Provider Student in an Organized Health Care Education/Training Program; PCP Family Medicine
DX: R07.9 Chest pain, unspecified (principal); E78.5 Hyperlipidemia, unspecified; N40.0 Benign prostatic hyperplasia without lower urinary tract symptoms
CPT/HCPCS: 36415; 71046; 80053; 83690; 84484; 85025; 85610; 85730; 93005; 99284; A9270

== ENCOUNTER 2025-09-08 09:21 | Outpatient (CLI) | payer OTHER, SELFPAY ==
--- NOTE | 2025-09-08 09:40 | NEURO_ITS ---
Impression: # Non-diabetic complaining of numbness of hands. ? # Bilateral Carpal Tunnel Syndrome, right more than left. ? # Ulnar Neuropathy across the elbow, left more than right. ? # Needle/ EMG exam mildly abnormal. Nerve Conduction Studies ?Stim Site NR Peak (ms) P-T Amp (?V) Site1 Site2 Delta-P (ms) Dist (cm) Colin (m/s) Left Median Anti Sensory (2-3nd Digit) Wrist ? 4.6 9.8 Wrist 2-3nd Digit 4.6 14.0 30 Wrist ? 4.1 8.9 Wrist 2-3nd Digit 4.6 14.0 30 Right Median Anti Sensory (2-3nd Digit) Wrist ? 5.2 14.4 Wrist 2-3nd Digit 5.2 14.0 27 Wrist ? 5.6 5.3 Wrist 2-3nd Digit 5.2 14.0 27 Left Radial Anti Sensory (Base 1st Digit) Wrist ? 1.8 20.2 Wrist Base 1st Digit 1.8 0.0 Right Radial Anti Sensory (Base 1st Digit) Wrist ? 1.8 1.4 Wrist Base 1st Digit 1.8 0.0 Left Ulnar Anti Sensory (5th Digit) Wrist ? 2.9 12.7 Wrist 5th Digit 2.9 14.0 48 Right Ulnar Anti Sensory (5th Digit) Wrist ? 2.8 13.4 Wrist 5th Digit 2.8 14.0 50 ?Stim Site NR Onset (ms) O-P Amp (mV) Site1 Site2 Delta-0 (ms) Dist (cm) Colin (m/s) Left Median Motor (Abd Poll Brev) Wrist ? 4.4 3.1 Elbow Wrist 6.0 33.0 55 Elbow ? 10.4 3.0 Right Median Motor (Abd Poll Brev) Wrist ? 4.4 5.0 Elbow Wrist 5.2 33.0 63 Elbow ? 9.6 3.4 Left Ulnar Motor (Abd Dig Minimi) Wrist ? 2.2 6.5 A Elbow Wrist 6.3 32.0 51 A Elbow ? 8.5 5.2 B Elbow Wrist 4.4 23.0 52 B Elbow ? 6.6 4.4 Right Ulnar Motor (Abd Dig Minimi) Wrist ? 2.6 8.2 A Elbow Wrist 5.8 32.0 55 A Elbow ? 8.4 7.3 B Elbow Wrist 4.0 24.0 60 B Elbow ? 6.6 6.3 F Wave Studies ?NR F-Lat (ms) L-R F-Lat (ms) Left Median (Mrkrs) (Abd Poll Brev) ? 30.49 2.69 Right Median (Mrkrs) (Abd Poll Brev) ? 33.18 2.69 Left Ulnar (Mrkrs) (Abd Dig Min) ? 29.10 2.20 Right Ulnar (Mrkrs) (Abd Dig Min) ? 31.31 2.20 Electromyography ?Side Muscle Nerve Root Ins Act Fibs Amp Dur Recrt Comment Right 1stDorInt Ulnar C8-T1 Nml Nml Nml >12ms +1 Left 1stDorInt Ulnar C8-T1 Nml Nml Nml >12ms +1 Right ABD Dig Min Ulnar C8-T1 Nml Nml Nml Nml Nml Left ABD Dig Min Ulnar C8-T1 Nml Nml Nml Nml Nml Left Abd Poll Brev Median C8-T1 Nml Nml Nml >12ms +1 Right Abd Poll Brev Median C8-T1 Nml Nml Nml >12ms +1 Right Abd Poll Long Radial (Post Int) C7-8 Nml Nml Nml Nml Nml Left Abd Poll Long Radial (Post Int) C7-8 Nml Nml Nml Nml Nml Left BrachioRad Radial C5-6 Nml Nml Nml Nml Nml Right BrachioRad Radial C5-6 Nml Nml Nml Nml Nml Right Ext Digitorum Radial (Post Int) C7-8 Nml Nml Nml Nml Nml Left Ext Digitorum Radial (Post Int) C7-8 Nml Nml Nml Nml Nml Left Ext Indicis Radial (Post Int) C7-8 Nml Nml Nml Nml Nml Right Ext Indicis Radial (Post Int) C7-8 Nml Nml Nml Nml Nml Left FlexPolLong Median (Ant Int) C7-8 Nml Nml Nml Nml Nml Right FlexPolLong Median (Ant Int) C7-8 Nml Nml Nml Nml Nml Right PronatorTeres Median C6-7 Nml Nml Nml Nml Nml Left PronatorTeres Median C6-7 Nml Nml Nml Nml Nml
--- OUTSIDE RECORDS SUMMARY | 2025-09-08 10:10 | XMS_ITS | Clinical Summary ---
Author Organization [facility] Address [address] [place] [id number] Care Team Providers Care Pharmacy Innovation Assistant Name Role Phone Unavailable Primary Care Provider [...]
== END 2025-09-08 09:22 | disposition home or self-care (01) ==
PROVIDERS: PCP Family Medicine; Visit Provider Family Medicine
DX: G56.93 Unspecified mononeuropathy of bilateral upper limbs (principal)
CPT/HCPCS: 95886; 95911

== ENCOUNTER 2025-09-10 08:42 | Outpatient (CLI) | payer OTHER, SELFPAY ==
--- NOTE | ~2025-09-10 | NM_ITS ---
EXAMINATION: NM stress w perf spect multi DATE: 09/10/2025 11:06 INDICATION: Chest pain TECHNIQUE: Rest images were obtained following intravenous administration of 10 mCi Tc99m tetrofosmin (Myoview). The patient performed an exercise activity. At peak exercise, 32 mCi Tc99m tetrofosmin (Myoview) was administered intravenously, and stress images were obtained. Data was reconstructed into short axis and horizontal and vertical long axis SPECT images. Gated SPECT images were also obtained. COMPARISON: None. FINDINGS: There is decreased activity along portions of the anterior and lateral motley on the rest imaging which is significantly improved on the gated post stress imaging where there are mild residual defects at the apical lateral and mid anterolateral segments which are nearly normalizes on the gated post stress imaging and would favor artifact over infarct. Perfusion defects on the stress imaging to suggest ischemia. There is normal left ventricular chamber size, wall motion and ejection fraction. Left ventricular ejection fraction measures 53%. IMPRESSION: 1. Perfusion defect on the rest and non gated stress imaging at the apical lateral and mid anterolateral segments which nearly normalizes on the gated post stress imaging and weighted favor artifact over infarct. No reversible ischemia.. 2. Left ventricular ejection fraction measuring 53%. Reviewed, dictated and finalized at location A. [employer] IMPRESSION: 1. Perfusion defect on the rest and non gated stress imaging at the apical late ral and mid anterolateral segments which nearly normalizes on the gated post st ress imaging and weighted favor artifact over infarct. No reversible ischemia.. 2. Left ventricular ejection fraction measuring 53%.
--- OUTSIDE RECORDS SUMMARY | 2025-09-10 08:48 | XMS_ITS | Clinical Summary ---
Author Organization [facility] Address [address] [place] [id number] Care Team Providers Care Healthcare Insurance Sales Agent Name Role Phone Unavailable Primary Care Provider [...]
--- NOTE | 2025-09-10 09:08 | EST_ITS ---
Patient Info Name: Osmar Delgado Age: 69 years : 1955 Gender: Male Ht: 72 in Wt: 210 lbs BSA: 2.22 m2 HR: 75 bpm BP: 136 / 84 mmHg Exam Date: 09/10/2025 9:08 AM Patient Status: O Admit Date: 09/10/2025 Exam Type: CA stress test treadmill w NM A nuclear stress test was performed. Staff Referring Physician: Torres Meyer DO Attending Provider: Torres Meyer DO Exercise Technologist: Netta Danielle Exercise Physician: Torres Meyer DO Summary 1. 1. Negative Victor Manuel exercise stress test for ischemic ST changes by ECG criteria. 2. 2. Reduced functional capacity, achieving 7 METs of workload. 3. 3. Appropriate HR response to exercise. 4. 4. Appropriate HR recovery at 1 minute post exercise. 5. 5. Nuclear scan to follow and will be reported separately. Please correlate with it. 6. 6. Patient informed of the above results. Protocol: Victor Manuel Stress ECG Details Stage: REST Duration (min): 1 min : 36 sec Speed (mph): 0.0 Grade (%): 0 HR (bpm): 77 SBP (mmHg): 136 DBP (mmHg): 84 METS: --- Stage: REST Duration (min): 4 min : 23 sec Speed (mph): 0.0 Grade (%): 0 HR (bpm): 85 SBP (mmHg): 136 DBP (mmHg): 84 METS: --- Stage: STAGE 1 Duration (min): 1 min : 0 sec Speed (mph): 1.7 Grade (%): 10 HR (bpm): 97 SBP (mmHg): 136 DBP (mmHg): 84 METS: --- Stage: STAGE 1 Duration (min): 2 min : 0 sec Speed (mph): 1.7 Grade (%): 10 HR (bpm): 106 SBP (mmHg): 136 DBP (mmHg): 84 METS: --- Stage: STAGE 1 Duration (min): 3 min : 0 sec Speed (mph): 1.7 Grade (%): 10 HR (bpm): 114 SBP (mmHg): 137 DBP (mmHg): 61 METS: --- Stage: STAGE 2 Duration (min): 1 min : 0 sec Speed (mph): 2.5 Grade (%): 12 HR (bpm): 125 SBP (mmHg): 137 DBP (mmHg): 61 METS: --- Stage: STAGE 2 Duration (min): 2 min : 0 sec Speed (mph): 2.5 Grade (%): 12 HR (bpm): 132 SBP (mmHg): 154 DBP (mmHg): 54 METS: --- Stage: STAGE 2 Duration (min): 2 min : 9 sec Speed (mph): 2.5 Grade (%): 12 HR (bpm): 132 SBP (mmHg): 154 DBP (mmHg): 54 METS: --- Stage: RECOVERY Duration (min): 0 min : 50 sec Speed (mph): 0.0 Grade (%): 0 HR (bpm): 119 SBP (mmHg): 154 DBP (mmHg): 54 METS: --- Stage: RECOVERY Duration (min): 1 min : 50 sec Speed (mph): 0.0 Grade (%): 0 HR (bpm): 105 SBP (mmHg): 154 DBP (mmHg): 54 METS: --- Stage: RECOVERY Duration (min): 2 min : 50 sec Speed (mph): 0.0 Grade (%): 0 HR (bpm): 146 SBP (mmHg): 171 DBP (mmHg): 62 METS: --- Stage: RECOVERY Duration (min): 3 min : 50 sec Speed (mph): 0.0 Grade (%): 0 HR (bpm): 147 SBP (mmHg): 171 DBP (mmHg): 62 METS: --- Stage: RECOVERY Duration (min): 4 min : 50 sec Speed (mph): 0.0 Grade (%): 0 HR (bpm): 142 SBP (mmHg): 155 DBP (mmHg): 71 METS: --- Stage: RECOVERY Duration (min): 5 min : 50 sec Speed (mph): 0.0 Grade (%): 0 HR (bpm): 90 SBP (mmHg): 155 DBP (mmHg): 71 METS: --- Stage: RECOVERY Duration (min): 6 min : 1 sec Speed (mph): 0.0 Grade (%): 0 HR (bpm): 89 SBP (mmHg): 155 DBP (mmHg): 71 METS: --- Rest HR: 85 bpm Peak HR: 151 bpm Rest Sys BP: 136 mmHg Peak Sys BP: 171 mmHg Max Pred HR: 149 bpm % Max Pred HR: 101 % Target HR: 127 bpm Max RPP: 25,821 bpm*mmHg Manzo Score: -0 Termination Reason: Reached target heart rate or workload Cardiac Symptoms: Shortness of breath Max ST Seg Deviation: -1.10 mm Total Time: 5 min : 9 sec Rest Perez BP: 84 mmHg Peak Perez BP: 62 mmHg Angina Score: None Total METS: 7.1 Resting ECG Sinus rhythm. Stress ECG No ST changes. Arrhythmias None. Report Signatures
== END 2025-09-10 08:43 | disposition home or self-care (01) ==
PROVIDERS: PCP Family Medicine; Visit Provider Internal Medicine Cardiovascular Disease
DX: R07.9 Chest pain, unspecified (principal); I47.20 Ventricular tachycardia, unspecified
CPT/HCPCS: 78452; 93017; A9502